=== PATIENT | male | born 1995 ===

== ENCOUNTER 2016-12-30 13:18 | Emergency (ER) | payer OTHER ==
[2016-12-30 13:26] VITALS: BP 132/83; PULSE 78; RESP 17; TEMP 98.6; O2SAT 99
--- NOTE | 2016-12-30 13:31 | C.PDOC ---
History Of Present Illness 21 year old male presents to the ED c/o right ankle pain. Pt states he twisted his right ankle while going down the stairs this morning, pain is localized and worse with weight bearing there is no deformity or skin changes. Otherwise, Patient denies weakness, numbness, sensory or vascular deficits to right lower extremity. Time Seen by Provider: 12/30/16 13:27 Chief Complaint (Nursing): Lower Extremity Problem/Injury History Per: Patient History/Exam Limitations: no limitations Onset/Duration Of Symptoms: Hrs Current Symptoms Are (Timing): Still Present Recent travel outside of the [place]: No Additional History Per: Patient - Ankle/Foot Description Of Injury: Twisted Currently Unable To: Bear Weight Alleviating Factor(s): OTC Pain Medication Past Medical History Reviewed: Historical Data, Nursing Documentation, Vital Signs Vital Signs: Last Vital Signs Temp 98.6 F 12/30/16 13:23 Pulse 78 12/30/16 13:23 Resp 17 12/30/16 13:23 BP 132/83 12/30/16 13:23 Pulse Ox 99 12/30/16 13:42 - Medical History PMH: No Chronic Diseases Surgical History: No Surg Hx Family History: States: Unknown Family Hx - Social History Hx Alcohol Use: Yes Hx Substance Use: No - Immunization History Hx Tetanus Toxoid Vaccination: No Hx Influenza Vaccination: No Hx Pneumococcal Vaccination: No Review Of Systems Constitutional: Negative for: Fever Cardiovascular: Negative for: Chest Pain Respiratory: Negative for: Cough, Shortness of Breath Gastrointestinal: Negative for: Nausea, Vomiting, Abdominal Pain Musculoskeletal: Positive for: Foot Pain (Right) Neurological: Negative for: Weakness, Numbness Physical Exam - Physical Exam Appears: Non-toxic, No Acute Distress Skin: Normal Color, Warm, Dry Head: Atraumatic Extremity: Normal ROM (Right foot and ankle), Tenderness (Dorsal aspect of right foot over 5th metatarsal bone ( MTB)), Capillary Refill (less than 2 sec) , No Deformity, Swelling (trace over dorsal aspect Right lateral foot ) Pulses: Left Dorsalis Pedis: Normal, Right Dorsalis Pedis: Normal Neurological/Psych: Oriented x3, Normal Speech, Normal Cognition, Normal Motor, Normal Sensation, Normal Reflexes ED Course And Treatment O2 Sat by Pulse Oximetry: 99 (On RA) Pulse Ox Interpretation: Normal - Other Rad Right anlke and foot X-Ray: Interpreted by Me, Viewed By Me Interpretation: no acute fx or dislocation Progress Note: Plan: - Right ankle X-Ray. -Right foot X-Ray. On re-evaluation , pt is afebrile, hemodynamicaly stable. NOn-toxic. RLE: exam c/w ankle and foot sprain. No edmea, no defomrity, FAROM, no neurovascular deficits. Xray review and appears normal. Air cast, Jori wrap applied to Right ankle. Pt has clinical findings c/w ankle/foot sprain. Pt advised. ref. to f/u with Tool Programmer in 2-3 days for re-eval. return if any new changes. Disposition Counseled Patient/Family Regarding: Studies Performed, Diagnosis, Need For Followup, Rx Given - Disposition Referrals: [facility] [Outside] Podiatry Clinic [Outside] Disposition: HOME/ ROUTINE Disposition Time: 13:59 Condition: STABLE Additional Instructions: light duty to right foot, avoid prolong walking for 1-2 weeks Splint for 1 week rice-rest,ice, compression, elevation Follow up with filteration operator in [facility] on Monday and Monday from 8AM-NOON for re-evaluation. return to ED if any worsening or new changes. Prescriptions: Ibuprofen [Motrin] 1 tab PO TID PRN #20 tab PRN Reason: Pain Instructions: Foot Sprain (ED), Ankle Sprain (ED), Ankle Stirrup Splint (ED) Forms: Work Excuse, [facility] ([place]ic) - Clinical Impression Clinical Impression: Ankle sprain, Foot sprain - PA / AGRICULTURE MANAGER / Resident Statement MD/DO has reviewed & agrees with the documentation as recorded. - Scribe Statement The provider has reviewed the documentation as recorded by the Scribe Rashaun Finch All medical record entries made by the Scribe were at my direction and personally dictated by me. I have reviewed the chart and agree that the record accurately reflects my personal performance of the history, physical exam, medical decision making, and the department course for this patient. I have also personally directed, reviewed, and agree with the discharge instructions and disposition.
--- NOTE | 2016-12-30 14:11 | RAD ---
PROCEDURE: Right foot dated 12/30/2016 HISTORY: Injury. COMPARISON: Correlation made with concurrent radiographs of the right ankle. FINDINGS: BONES: No evidence of acute displaced fracture nor dislocation. The osseous structures appear intact. No cortical destructive changes. JOINTS: Joint spaces preserved. No significant osteoarthritis. SOFT TISSUES: Minor soft tissue swelling overlying the lateral malleolus less well seen on this study as compared to dedicated ankle radiographs. OTHER FINDINGS: None. IMPRESSION: No evidence of acute displaced fracture nor dislocation. If symptoms persist or occult fracture suspected clinically consider repeat radiographs in 5-10 days as most fractures should become radiographically evident in this timeframe.
--- NOTE | 2016-12-30 14:13 | RAD ---
PROCEDURE: Right ankle dated 12/30/2016 HISTORY: Injury. COMPARISON: Correlation made with concurrent radiographs of the right foot. FINDINGS: BONES: No evidence of acute displaced fracture nor dislocation. The osseous structures appear intact. Talar dome intact. No cortical destructive changes. JOINTS: Ankle mortise maintained. No significant osteoarthritis. SOFT TISSUES: Minor soft tissue swelling overlying the lateral malleolus. OTHER FINDINGS: None. IMPRESSION: No evidence of acute displaced fracture nor dislocation. If symptoms persist or occult fracture suspected clinically recommend repeat radiographs in 5-10 days as most fractures should become radiographically evident in this timeframe. Minor soft tissue swelling overlying the lateral malleolus
== END 2016-12-30 14:30 | disposition home or self-care (01) ==
LOC: C.ER 13:18
DX: S93.401A Sprain of unspecified ligament of right ankle, initial encounter (principal); S93.601A Unspecified sprain of right foot, initial encounter; X50.9XXA Other and unspecified overexertion or strenuous movements or postures, initial encounter

== ENCOUNTER 2017-09-27 09:27 | Emergency (ER) | payer OTHER ==
[2017-09-27 09:28] VITALS: BMI 32.5
[2017-09-27 09:40] VITALS: BP 133/78; PULSE 56; RESP 18; TEMP 98; O2SAT 98
--- NOTE | 2017-09-27 10:20 | C.PDOC ---
History Of Present Illness CC: Diffuse rash Patient is a 22 year old male with no known past medical history, who presents to the ED with complaint of diffuse rash that started 4 days ago. Patient states that he was outside 6 days ago and was bitten by mosquitoes. Initially, patient states that he attributed his rash due to mosquitoes bites but then he started noticing raised rash on left lower back and his chest in a linear pattern. Patient states that he was rubbing alcohol on his rash with no improvement. Patient denies any other associated symptoms. Time Seen by Provider: 09/27/17 09:57 Chief Complaint (Nursing): Abnormal Skin Integrity History Per: Patient History/Exam Limitations: no limitations Onset/Duration Of Symptoms: Days Current Symptoms Are (Timing): Still Present Severity: Moderate Pain Scale Rating Of: 4 Location: Diffuse pruritic rash Past Medical History Vital Signs: Last Vital Signs Temp 98 F 09/27/17 09:36 Pulse 56 L 09/27/17 09:36 Resp 18 09/27/17 09:36 BP 133/78 09/27/17 09:36 Pulse Ox 98 09/27/17 11:15 - Medical History PMH: No Chronic Diseases Other Surgeries: Hernia repair Family History: States: Unknown Family Hx - Social History Hx Tobacco Use: No Hx Alcohol Use: Yes (Socially ) Hx Substance Use: No - Immunization History Hx Tetanus Toxoid Vaccination: No Hx Influenza Vaccination: No Hx Pneumococcal Vaccination: No Review Of Systems Constitutional: Negative for: Fever, Chills, Weakness, Malaise Eyes: Negative for: Pain, Vision Change ENT: Negative for: Ear Pain, Ear Discharge, Nose Pain, Nose Congestion Cardiovascular: Negative for: Chest Pain, Palpitations, Orthopnea Respiratory: Negative for: Cough, Shortness of Breath Gastrointestinal: Negative for: Nausea, Vomiting, Abdominal Pain, Diarrhea Musculoskeletal: Negative for: Neck Pain, Shoulder Pain, Back Pain, Hand Pain Skin: Positive for: Rash Neurological: Negative for: Weakness, Numbness, Confusion, Seizures, Dizziness Physical Exam - Physical Exam Appears: Well Skin: Normal Color, Warm, Rash (Diffuse rash ( left lateral lower back, chest and arm)) Head: Atraumatic, Normacephalic Eye(s): bilateral: Normal Inspection, PERRL, EOMI Neck: Normal, Normal ROM Chest: Symmetrical Cardiovascular: Rhythm Regular Respiratory: Normal Breath Sounds, No Decreased Breath Sounds, No Accessory Muscle Use Gastrointestinal/Abdominal: Normal Exam, Bowel Sounds, Soft, No Tenderness Extremity: Bilateral: Atraumatic Neurological/Psych: Oriented x3, Normal Speech, Normal Cognition, Normal Cranial Nerves ED Course And Treatment O2 Sat by Pulse Oximetry: 98 Disposition Discussed With DrWillis: Dat Gonzalez - Disposition Disposition: HOME/ ROUTINE Disposition Time: 10:18 Condition: STABLE Additional Instructions: Please discharge patient home Please follow up with your PMD at the [facility] withing 1-2 days Please take medrol dose benja and Benadryl 25mg PO Q6H PRN for itchiness Please use sensitive body soap, try oatmeal bath and calamine lotion Prescriptions: DiphenhydrAMINE [Benadryl] 25 mg PO Q6 PRN #20 cap PRN Reason: Itching / Pruritus Methylprednisolone [Medrol Dose Pack (21 tabs)] See Taper PO DAILY #21 mg Instructions: Contact Dermatitis (DC) Forms: [facility] (Austrian), General Discharge Instructions - Clinical Impression Clinical Impression: Contact dermatitis, Skin irritation, Allergic contact dermatitis
== END 2017-09-27 10:57 | disposition home or self-care (01) ==
LOC: C.ER 09:27
DX: L23.9 Allergic contact dermatitis, unspecified cause (principal)